=== PATIENT | female | born 1990 | race Caucasian/White ===

== ENCOUNTER 2018-11-29 10:25 | Observation (INO) | payer OTHER ==
[~2018-11-29] VITALS: Ht 153 cm; Wt 59.0 kg
[2018-11-29 11:31] VITALS: BP 111/69
[2018-11-29] MEDS ORDERED: MICO45CR76 VG (23:26)
[2018-11-29] MEDS ORDERED: PNV11TAB PO (23:27)
== END 2018-11-29 11:50 | disposition home or self-care (01) ==
LOC: EDBD → 4S 10:25
PROVIDERS: ADMIT Specialist; ATTEND Specialist
DX: O62.9 Abnormality of forces of labor, unspecified (principal); Z3A.39 39 weeks gestation of pregnancy
CPT/HCPCS: 81002; G0378

== ENCOUNTER 2018-11-29 22:50 | Observation (INO) | payer OTHER ==
[~2018-11-29] VITALS: Ht 163 cm; Wt 59.0 kg
[2018-11-29 23:23] VITALS: BP 115/69
[2018-11-29] MEDS ORDERED: MICO45CR76 VG (23:26)
[2018-11-29] MEDS ORDERED: PNV11TAB PO (23:27)
== END 2018-11-30 02:35 | disposition home or self-care (01) ==
LOC: 4S 22:50 → EDBD 22:50
PROVIDERS: ADMIT Obstetrics & Gynecology; ATTEND Obstetrics & Gynecology
DX: O62.9 Abnormality of forces of labor, unspecified (principal); O26.893 Other specified pregnancy related conditions, third trimester; R10.9 Unspecified abdominal pain; O99.89 Other specified diseases and conditions complicating pregnancy, childbirth and the puerperium; M54.9 Dorsalgia, unspecified; Z3A.39 39 weeks gestation of pregnancy
CPT/HCPCS: G0378 ×2

== ENCOUNTER 2018-11-30 17:15 | Inpatient (IN) | payer OTHER ==
[~2018-11-30] VITALS: Ht 153 cm; Wt 58.2 kg
[~2018-11-30 17:15] MED LIST: MICO45CR76 VG; PNV11TAB PO
[2018-11-30] MEDS ORDERED: OXYTOCIN 30 UNITS/LACT RINGERS 500 ML IV ONE (17:43)
[2018-11-30] MEDS ORDERED: RINGERS SOLUTION,LACTATED 1,000 ML IV PRN (17:43)
[2018-11-30] MEDS ORDERED: METHYLERGONOVINE MALEATE 0.2 MG/ML VIAL IM PRN (17:45)
[2018-11-30] MEDS ORDERED: METOCLOPRAMIDE HCL 5 MG/ML 2 ML VIAL IVP PRN (17:45)
[2018-11-30] MEDS ORDERED: CITRIC ACID/SODIUM CITRATE 30 ML SOLUTION UDCUP PO PRN (17:45)
[2018-11-30] MEDS ORDERED: FentaNYL CITRATE-PF 100 MCG/2 ML VIAL IVP PRN (17:45)
[2018-11-30] MEDS ORDERED: RINGERS SOLUTION,LACTATED 1,000 ML IV ONE (18:01)
[2018-11-30 18:26] LABS: BASOPHILS % (AUTO) 0.4 % (0.0-2.0); EOSINOPHILS % (AUTO) 0 % (1.0-6.0); HEMATOCRIT 37.2 % (36-46); HEMOGLOBIN 13.1 g/dL (12.0-16.0); LYMPHOCYTES # (AUTO) 0.9 K/uL (1.0-4.8); LYMPHOCYTES % (AUTO) 5.3 % (22.0-44.0); MEAN CORPUSCULAR HGB CONC 35.1 G/dL (31.0-37.0); MEAN CORPUSCULAR VOLUME 91 fL (80-100); MONOCYTES # (AUTO) 0.7 K/uL (0.1-1.0); MONOCYTES % (AUTO) 3.9 % (2.0-9.0); NEUTROPHILS # (AUTO) 15.1 K/uL (1.8-7.7); PLATELET COUNT (AUTO)-OB 302 K/uL (150-450); RED BLOOD CELL COUNT(AUTO) 4.08 MIL/uL (4.00-5.20)
[2018-11-30 18:28] LABS: NEUTROPHILS % (AUTO) 90.4 % (40.0-70.0)
[2018-11-30] MEDS: RINGERS SOLUTION,LACTATED 1,000 ML IV SCH ×2 (18:46→22:18)
[2018-11-30 18:54] LABS: PLATELET MORPHOLOGY COMMENT LARGE PLTS PRESENT
[2018-11-30] MEDS ORDERED: ROPIVACAINE HCL/PF 0.2% 100 ML ED PRN (19:57)
[2018-11-30] MEDS ORDERED: NALBUPHINE HCL 10 MG/ML VIAL IVP PRN (20:00)
[2018-11-30] MEDS ORDERED: OXYGEN THERAPY IH SCH (20:00)
[2018-11-30] MEDS ORDERED: ONDANSETRON HCL 4 MG/2 ML VIAL IVP PRN (20:00)
[2018-11-30] MEDS ORDERED: DiphenhydrAMINE HCL 50 MG/ML VIAL IVP PRN (20:00)
[2018-11-30] MEDS ORDERED: BUPIVACAINE HCL/PF 0.5% 10 ML VIAL ONE (20:56)
[2018-11-30] MEDS ORDERED: LIDOCAINE/PF 2% 5 ML VIAL ONE (20:56)
[2018-12-01] MEDS: RINGERS SOLUTION,LACTATED 1,000 ML IV SCH ×2 (03:37→08:44)
[2018-12-01] MEDS ORDERED: OXYTOCIN 30 UNITS/LACT RINGERS 500 ML IV PRN (05:22)
[2018-12-01] MEDS ORDERED: MEASLES/MUMPS/RUBELLA VACCINE, LIVE 0.5 ML/VIAL SQ ONE (09:45)
[2018-12-01] MEDS ORDERED: SENNA/DOCUSATE SODIUM 8.6-50 MG TABLET PO PRN (09:45)
[2018-12-01] MEDS ORDERED: METHYLERGONOVINE MALEATE 0.2 MG TABLET PO PRN (09:45)
[2018-12-01] MEDS ORDERED: LANOLIN 7 GM OINTMENT TP PRN (09:45)
[2018-12-01] MEDS ORDERED: BENZOCAINE 20%/MENTHOL 56 GM SPRAY CANISTER TP PRN (09:45)
[2018-12-01] MEDS ORDERED: OxyCODONE HCL/ACETAMINOPHEN 5-325 MG TABLET PO PRN ×2 (09:45)
[2018-12-01] MEDS ORDERED: GLYCERIN/WITCH HAZEL LEAF 40 PADS JAR TP PRN (09:45)
[2018-12-01] MEDS ORDERED: MAGNESIUM HYDROXIDE SUSPENSION 30 ML UDCUP PO PRN (09:45)
[2018-12-01] MEDS: IBUPROFEN 800 MG TABLET PO PRN (16:16)
[2018-12-02] MEDS: IBUPROFEN 800 MG TABLET PO PRN (06:22)
[2018-12-02 07:12] LABS: BASOPHILS % (AUTO) 0.5 % (0.0-2.0); EOSINOPHILS % (AUTO) 0.4 % (1.0-6.0); HEMOGLOBIN 11.6 g/dL (12.0-16.0); LYMPHOCYTES # (AUTO) 1.7 K/uL (1.0-4.8); LYMPHOCYTES % (AUTO) 11.5 % (22.0-44.0); MEAN CORPUSCULAR HEMOGLOBIN 33.8 pg (26.0-34.0); MEAN CORPUSCULAR HGB CONC 36.5 G/dL (31.0-37.0); MEAN CORPUSCULAR VOLUME 93 fL (80-100); MONOCYTES # (AUTO) 1.2 K/uL (0.1-1.0); NEUTROPHILS % (AUTO) 79.6 % (40.0-70.0); PLATELET COUNT (AUTO)-OB 250 K/uL (150-450); RED BLOOD CELL COUNT(AUTO) 3.45 MIL/uL (4.00-5.20); RED CELL DISTRIBUTION WIDTH 12.1 % (11.5-14.5)
[2018-12-02] MEDS ORDERED: IBUP-2071 PO (09:21)
== END 2018-12-02 13:20 | disposition home or self-care (01) | DRG 807 ==
LOC: 4S 17:15 → OBSVTOIN 17:15 → 4S 12-01 21:32
PROVIDERS: ADMIT Specialist; ATTEND Specialist
PROC: 10907ZC Drainage of Amniotic Fluid, Therapeutic from Products of Conception, Via Natural or Artificial Opening (ICD-10-PCS; principal; 2018-12-01)
PROC: 10E0XZZ Delivery of Products of Conception, External Approach (ICD-10-PCS; 2018-12-01)
PROC: 0HQ9XZZ Repair Perineum Skin, External Approach (ICD-10-PCS; 2018-12-01)
PROC: 3E0R3BZ Introduction of Anesthetic Agent into Spinal Canal, Percutaneous Approach (ICD-10-PCS; 2018-12-01)
PROC: 00HU33Z Insertion of Infusion Device into Spinal Canal, Percutaneous Approach (ICD-10-PCS; 2018-12-01)
DX: O76 Abnormality in fetal heart rate and rhythm complicating labor and delivery (principal); Z37.0 Single live birth; O70.0 First degree perineal laceration during delivery; Z3A.39 39 weeks gestation of pregnancy
CPT/HCPCS: 76805; 85461; 86850; 86870; 86900; 86901; 90707; J2590; J2795; J3490; J7120